=== PATIENT | male | born 1975 | race Hispanic/Latino ===

== ENCOUNTER 2023-04-29 06:10 | Day surgery (SDC) | payer OTHER ==
[2023-04-27 10:46] LABS: HEMATOCRIT 49.4 % (42-54); MEAN CORPUSCULAR VOLUME 87.9 fL (79-99); PLATELET COUNT (AUTO) 239 K/uL (130-400); RED BLOOD CELL COUNT(AUTO) 5.62 MIL/uL (4.50-6.20); RED CELL DISTRIBUTION WIDTH 13.4 % (11.0-15.5); WHITE BLOOD COUNT (AUTO) 6.2 K/uL (4.8-10.8)
[2023-04-27 11:53] VITALS: BP 134/86; PULSE 81; RESP 18
[2023-04-27 11:56] LABS: ALBUMIN 3.6 g/dL (3.5-5.0); CARBON DIOXIDE 29 mmol/L (21-32); CHLORIDE 102 mmol/L (101-111); CREATININE 1.2 mg/dL (0.5-1.5); GLOMERULAR FILTR. RATE CALC 75 mL/min (>90); GLUCOSE,RANDOM 114 mg/dL (70-105); POTASSIUM 3.8 mmol/L (3.5-5.1); SODIUM SERUM 141 mmol/L (136-145); UREA NITROGEN, BLOOD 21 mg/dL (7-18)
[2023-04-27 11:59] LABS: CRP QUANTITATIVE < 2.00 mg/L (0.00-9.0)
[2023-04-27 12:04] LABS: BAND NEUTROPHILS % (MANUAL) 1 % (0-2); EOSINOPHILS % (MANUAL) 5 % (1-6); LYMPHOCYTES % (MANUAL) 24 % (22-44); MAN.DIFF COMMENT-IMPRESSION MANUAL DIFFERENTIAL; MONOCYTES % (MANUAL) 5 % (2-9); PLATELET MORPHOLOGY COMMENT ADEQUATE; SEGMENTED NEUTROPHILS % 65 % (40-70); TOTAL CELLS COUNTED 100
[~2023-04-29] VITALS: Ht 172.7 cm; Wt 104.8 kg
[2023-04-29] VITALS (21 sets, daily range): BP systolic 107–149; BP diastolic 62–93; PULSE 66–90; RESP 15–20
[~2023-04-29 06:10] MED LIST: BUPR150T3 PO; CYCL-309 PO; DULO60CA64 PO; GABA-534 PO; PRAZ2CAP2 PO; SILD100T PO; SUMA50TA17 PO; TOPI-255 PO; TRAZ-185 PO
[2023-04-29] MEDS ORDERED: LACTATED RINGERS 1000ML 1,000 ML IV ONE (06:18)
[2023-04-29] MEDS: CEFAZOLIN SODIUM 2 GM VIAL ONE ×2 (06:27→08:05)
[2023-04-29] MEDS ORDERED: FAMOTIDINE 20MG VIAL IV ONE (06:46)
[2023-04-29] MEDS ORDERED: SUCCINYLCHOLINE CHLORIDE 20 MG/ML 10 ML VIAL ONE (06:49)
[2023-04-29] MEDS ORDERED: LIDOCAINE PF 100MG/5ML (2%) SYRINGE 5ML ONE (06:49)
[2023-04-29] MEDS ORDERED: PROPOFOL 10 MG/ML 20ML VIAL IV ONE ×2 (06:50→10:52)
[2023-04-29] MEDS ORDERED: PHENYLEPHRINE HCL 10 MG/ML 1ML VIAL IV ONE (06:50)
[2023-04-29] MEDS ORDERED: MIDAZOLAM HCL 1 MG/ML 2ML VIAL ONE (06:50)
[2023-04-29] MEDS ORDERED: FENTANYL CITRATE PF 50 MCG/1 ML 2ML VIAL ONE (06:50)
[2023-04-29] MEDS ORDERED: ROCURONIUM 10MG/1ML SYR 10 MG/ML ML ONE ×2 (06:50→09:06)
[2023-04-29] MEDS ORDERED: ROPIVACAINE 0.5% 5MG/ML 30ML IJ ONE (06:53)
[2023-04-29] MEDS ORDERED: EPINEPHRINE 1 MG/ML 30ML VIAL IJ ONE (06:56)
[2023-04-29] MEDS ORDERED: ONDANSETRON 4MG INJ ONE (08:20)
[2023-04-29] MEDS ORDERED: GLYCOPYRROLATE 1 MG/5 ML SYRINGE ONE (08:28)
[2023-04-29] MEDS ORDERED: EPHEDRINE SULFATE 50 MG/ML AMPULE ONE (08:32)
[2023-04-29] MEDS ORDERED: DEXMEDETOMIDINE HCL 200 MCG/2 ML VIAL IV ONE (10:48)
[2023-04-29] MEDS ORDERED: NEOSTIGMINE 5MG/5ML SYR IV ONE (10:54)
[2023-04-29] MEDS ORDERED: HYDR-4379 PO (11:05)
[2023-04-29] MEDS ORDERED: CYCL-309 PO (11:05)
== END 2023-04-29 13:35 | disposition home or self-care (01) ==
LOC: DAH 06:10
PROVIDERS: ATTEND Student in an Organized Health Care Education/Training Program
DX: M75.111 Incomplete rotator cuff tear or rupture of right shoulder, not specified as traumatic (principal); Z20.822 Contact with and (suspected) exposure to COVID-19; M75.21 Bicipital tendinitis, right shoulder; M75.41 Impingement syndrome of right shoulder; M24.111 Other articular cartilage disorders, right shoulder; M19.011 Primary osteoarthritis, right shoulder; J45.909 Unspecified asthma, uncomplicated; K21.9 Gastro-esophageal reflux disease without esophagitis; G47.00 Insomnia, unspecified; G47.33 Obstructive sleep apnea (adult) (pediatric); F41.9 Anxiety disorder, unspecified; G43.909 Migraine, unspecified, not intractable, without status migrainosus; Z96.652 Presence of left artificial knee joint; Z79.899 Other long term (current) drug therapy; Z98.890 Other specified postprocedural states
CPT/HCPCS: 82040; 80048; 85025; 84134; 86140; 36415; 29827; 29826; 29824; 64415; C1713 ×3; A4663; J7030; A4565; A4452; J7120; J3490 ×3; J3010; J2710; J0330; J0171; J2001; J2250; J2704 ×2; J2405; J2795; J2371; J0690; A6223; A4930; A4649; A5120; A4215; A4223; A4222; A4221; A4600